=== PATIENT | male | born 1985 | race Two or more races ===

== ENCOUNTER 2021-02-11 01:46 | Emergency (ER) | payer OTHER ==
[~2021-02-11] VITALS: Ht 172.7 cm; Wt 68.0 kg
[2021-02-11 01:46] VITALS: BP 176/89
== END 2021-02-11 03:11 ==
LOC: ER 01:47
DX: M54.2 Cervicalgia (principal); F10.129 Alcohol abuse with intoxication, unspecified; R00.0 Tachycardia, unspecified; Y90.9 Presence of alcohol in blood, level not specified; Z20.89 Contact with and (suspected) exposure to other communicable diseases; V49.49XA Driver injured in collision with other motor vehicles in traffic accident, initial encounter; Y93.89 Activity, other specified; Y92.488 Other paved roadways as the place of occurrence of the external cause; Y99.8 Other external cause status